=== PATIENT | male | born 1950 | race Caucasian/White ===

== ENCOUNTER 2023-12-11 08:54 | Day surgery (SDC) | payer MEDICARE, OTHER ==
[~2023-12-11 08:54] MED LIST: CEFAZOLIN 2 G in IV DEXTROSE 5% 100 ML IV ONE; ONDANSETRON ODT 4 MG TAB.RAPDIS ONE
[2023-12-11 09:41] LABS: BASOPHILS # (AUTO) 0.1 K/UL (0.0-0.2); DIFFERENTIAL COMMENT 0; EOSINOPHILS # (AUTO) 0.5 K/uL (0.0-0.7); EOSINOPHILS % (AUTO) 8.2 % (0.0-7.0); HEMATOCRIT 42.3 % (36.7-47.1); HEMOGLOBIN 13.8 g/dL (12.5-16.3); LYMPHOCYTES # (AUTO) 1.7 K/uL (0.8-4.8); LYMPHOCYTES % (AUTO) 25.5 % (20.5-51.5); MEAN CORPUSCULAR HEMOGLOBIN 30.6 uug (23.8-33.4); MEAN CORPUSCULAR HGB CONC 33 g/dL (32.5-36.3); MEAN CORPUSCULAR VOLUME 93.4 fL (73.0-96.2); MONOCYTES # (AUTO) 0.6 K/uL (0.1-1.30); NEUTROPHILS # (AUTO) 3.7 K/uL (1.8-8.9); NEUTROPHILS % (AUTO) 56.3 % (38.5-71.5); PLATELET COUNT (AUTO) 208 K/uL (152-348); RED BLOOD CELL COUNT(AUTO) 4.53 MIL/uL (4.06-5.63); RED CELL DISTRIBUTION WIDTH 15.3 % (12.1-16.2); WHITE BLOOD COUNT (AUTO) 6.6 K/uL (3.6-10.2)
[2023-12-11 09:45] LABS: *BILIRUBIN,URIN NEGATIVE (NEGATIVE); *BLOOD, URINE 2+ (NEGATIVE); *CLARITY,URINE CLEAR (CLEAR); *COLOR,URINE YELLOW (YELLOW); *KETONES,URINE NEGATIVE (NEGATIVE); *UROBILINOGEN,URINE 0.2 E.U./dl (NORMAL); LEUKOCYTE ESTERASE ,URINE NEGATIVE (NEGATIVE); NITRITE, URINE NEGATIVE (NEGATIVE); PH,URINE 5.5 (5.0-8.0); UGLUCOSE NEGATIVE (NEGATIVE)
[2023-12-11 09:54] LABS: BILIRUBIN,TOTAL 0.5 mg/dL (0.2-1.0); CALCIUM 8.7 mg/dL (8.5-10.1); POTASSIUM 3.7 mmol/L (3.5-5.1); TOTAL PROTEIN, SERUM 6.4 g/dL (6.4-8.2)
[2023-12-11 10:05] LABS: *PROTEIN,URINE 3+ (NEGATIVE)
[2023-12-11] MEDS ORDERED: BACITRACIN/POLYMYXIN B OINT 15 GM TUBE ONE (12:24)
[2023-12-11] MEDS ORDERED: LIDOCAINE HCL 1% 20 ML VIAL ONE (12:24)
[2023-12-11] MEDS ORDERED: BUPIVACAINE/EPI PF 0.5% 10 ML VIAL ONE (12:24)
[2023-12-11] MEDS ORDERED: FENTANYL CITRATE 100 MCG/2 ML AMPUL ONE (13:20)
[2023-12-11 13:22] LABS: BACTERIA,URINE MODERATE /HPF (NONE SEEN); SQUAMOUS EPITHELIAL CELL,UR FEW /HPF (NONE SEEN); WBC,URINE 0-3 /HPF (0-3)
[2023-12-11 13:23] LABS: URINE AMORPHOUS URATE MODERATE /HPF
[2023-12-11] MEDS ORDERED: ACETAMINOPHEN 325 MG TABLET ONE (14:40)
[2023-12-11] MEDS ORDERED: CELECOXIB 200 MG CAPSULE PO SCH (15:00)
[2023-12-11] MEDS ORDERED: GABAPENTIN 100 MG CAPSULE PO SCH (15:00)
[2023-12-11] MEDS ORDERED: ACETAMINOPHEN 325 MG TABLET PO SCH (15:00)
[2023-12-11 15:25] VITALS: TEMP 97.6
== END 2023-12-11 16:03 | disposition home or self-care (01) ==
LOC: DS 08:54
PROVIDERS: ATTEND Surgery
DX: K40.90 Unilateral inguinal hernia, without obstruction or gangrene, not specified as recurrent (principal); I25.10 Atherosclerotic heart disease of native coronary artery without angina pectoris; I12.9 Hypertensive chronic kidney disease with stage 1 through stage 4 chronic kidney disease, or unspecified chronic kidney disease; N18.9 Chronic kidney disease, unspecified; Z90.49 Acquired absence of other specified parts of digestive tract; Z98.890 Other specified postprocedural states; Z79.899 Other long term (current) drug therapy
CPT/HCPCS: 36415; 71045; 85025; 85730; 93005; A4649; A4663; C1781; J0690; J3010; J3490; J7120; Q0162